=== PATIENT | male | born 1960 | race African-American/Black ===

== ENCOUNTER 2018-11-02 15:00 | Inpatient (IN) | payer OTHER ==
[~2018-11-02] VITALS: Ht 185.4 cm; Wt 104.0 kg
[2018-11-02 15:04] VITALS: Ht 185.4 cm; Wt 104.0 kg
[2018-11-02 17:18] LABS: BASOPHIL % 0.5 % (0-2); PLATELET COUNT 329 x10^3mcL (130-400)
[2018-11-02 17:19] LABS: RED CELL DISTRIBUTION WIDTH 15.9 % (11.5-14.5)
[2018-11-02 17:25] LABS: CALCIUM 8.3 mg/dL (8.5-10.1); CARBON DIOXIDE 26.8 mmol/L (21-32); CHLORIDE SERUM 103 mmol/L (98-107); CREATININE SERUM 0.6 mg/dL (0.7-1.3); GFR1 > 60 mL/min; GLUCOSE SERUM 104 mg/dL (74-106); POTASSIUM SERUM 3.7 mmol/L (3.5-5.1); SODIUM SERUM 138 mmol/L (136-145)
[2018-11-02 17:38] LABS: ALBUMIN 3.6 g/dL (3.4-5.0); ALKALINE PHOSPHATASE 56 U/L (46-116); ALT/SGPT 22 U/L (16-63); AST/SGOT 17 U/L (15-37); BILIRUBIN TOTAL 0.4 mg/dL (0.20-1.00); TOTAL PROTEIN, SERUM 7.4 g/dL (6.4-8.2)
[2018-11-02] MEDS ORDERED: INVEGA SUSTENN117 MG (19:34)
[2018-11-02 20:21] LABS: microscopic required? YES; urine erythrocyte TRACE (NEGATIVE)
[2018-11-02 20:38] VITALS: BP 128/74
[2018-11-02 21:04] LABS: AMPHETAMINE QUAL UR POSITIVE (See below)
[2018-11-03 04:46] VITALS: BP 99/61
[2018-11-03 09:04] VITALS: BP 99/63
[2018-11-03 12:07] VITALS: BP 101/60
[2018-11-03 17:48] VITALS: BP 107/61
[2018-11-03 20:26] VITALS: BP 98/52
[2018-11-04 05:50] VITALS: BP 108/50
[2018-11-04 06:51] LABS: CALCIUM 8.2 mg/dL (8.5-10.1); CARBON DIOXIDE 24.9 mmol/L (21-32); CHLORIDE SERUM 104 mmol/L (98-107); CREATININE SERUM 0.6 mg/dL (0.7-1.3); GFR1 > 60 mL/min; GLUCOSE SERUM 85 mg/dL (74-106); PHOSPHOROUS 4.1 mg/dL (2.5-4.9); POTASSIUM SERUM 3.8 mmol/L (3.5-5.1); SODIUM SERUM 139 mmol/L (136-145)
[2018-11-04 08:08] LABS: BASOPHIL % 0.8 % (0-2); PLATELET COUNT 285 x10^3mcL (130-400)
[2018-11-04 08:11] LABS: RED CELL DISTRIBUTION WIDTH 16.6 % (11.5-14.5)
[2018-11-04 09:23] VITALS: BP 93/54
[2018-11-04 11:30] VITALS: BP 130/83
[2018-11-04 16:13] VITALS: BP 143/90
[2018-11-04 21:12] VITALS: BP 131/83
[2018-11-05 04:46] VITALS: BP 111/66
[2018-11-05 07:20] LABS: BASOPHIL % 0.6 % (0-2); PLATELET COUNT 332 x10^3mcL (130-400)
[2018-11-05 07:35] LABS: CALCIUM 8.8 mg/dL (8.5-10.1); CARBON DIOXIDE 24.4 mmol/L (21-32); CHLORIDE SERUM 104 mmol/L (98-107); CREATININE SERUM 0.6 mg/dL (0.7-1.3); GFR1 > 60 mL/min; GLUCOSE SERUM 92 mg/dL (74-106); POTASSIUM SERUM 4.1 mmol/L (3.5-5.1); SODIUM SERUM 138 mmol/L (136-145)
[2018-11-05 07:47] LABS: RED CELL DISTRIBUTION WIDTH 16.3 % (11.5-14.5)
[2018-11-05 08:48] VITALS: BP 96/72
[2018-11-05 12:32] VITALS: BP 112/90
[2018-11-05 21:11] VITALS: BP 106/67
[2018-11-06 05:47] VITALS: BP 98/59
[2018-11-06 08:33] VITALS: BP 140/75
[2018-11-06 17:05] VITALS: BP 103/66
[2018-11-06 19:49] VITALS: BP 119/74
[2018-11-07 05:16] VITALS: BP 107/71
[2018-11-07 06:56] LABS: BASOPHIL % 0.7 % (0-2); PLATELET COUNT 320 x10^3mcL (130-400)
[2018-11-07 07:17] LABS: CALCIUM 8.8 mg/dL (8.5-10.1); CARBON DIOXIDE 23.1 mmol/L (21-32); CHLORIDE SERUM 104 mmol/L (98-107); CREATININE SERUM 0.7 mg/dL (0.7-1.3); GFR1 > 60 mL/min; GLUCOSE SERUM 90 mg/dL (74-106); POTASSIUM SERUM 3.7 mmol/L (3.5-5.1); SODIUM SERUM 140 mmol/L (136-145)
[2018-11-07 07:29] LABS: RED CELL DISTRIBUTION WIDTH 16.7 % (11.5-14.5)
[2018-11-07 07:30] VITALS: BP 109/59
[2018-11-07 16:21] VITALS: BP 82/57
[2018-11-07 19:20] VITALS: BP 113/62
[2018-11-08 04:32] VITALS: BP 129/78
[2018-11-08 06:53] LABS: BASOPHIL % 0.8 % (0-2); PLATELET COUNT 329 x10^3mcL (130-400)
[2018-11-08 07:01] LABS: RED CELL DISTRIBUTION WIDTH 16.3 % (11.5-14.5)
[2018-11-08 07:15] LABS: CALCIUM 8.5 mg/dL (8.5-10.1); CARBON DIOXIDE 24.5 mmol/L (21-32); CHLORIDE SERUM 103 mmol/L (98-107); CREATININE SERUM 0.6 mg/dL (0.7-1.3); GFR1 > 60 mL/min; GLUCOSE SERUM 96 mg/dL (74-106); POTASSIUM SERUM 3.5 mmol/L (3.5-5.1); SODIUM SERUM 138 mmol/L (136-145)
[2018-11-08 09:02] VITALS: BP 107/74
[2018-11-08 16:31] VITALS: BP 117/77
[2018-11-08 21:11] VITALS: BP 98/54
[2018-11-09 04:46] VITALS: BP 115/63
[2018-11-09 06:04] LABS: BASOPHIL % 0.4 % (0-2); PLATELET COUNT 328 x10^3mcL (130-400)
[2018-11-09 07:54] LABS: CARBON DIOXIDE 24.2 mmol/L (21-32); CHLORIDE SERUM 103 mmol/L (98-107); GLUCOSE SERUM 94 mg/dL (74-106); POTASSIUM SERUM 3.6 mmol/L (3.5-5.1); SODIUM SERUM 137 mmol/L (136-145)
[2018-11-09 07:55] LABS: CALCIUM 8.5 mg/dL (8.5-10.1); CREATININE SERUM 0.6 mg/dL (0.7-1.3); GFR1 > 60 mL/min
[2018-11-09 09:18] VITALS: BP 125/62
[2018-11-09 16:47] VITALS: BP 106/56
[2018-11-09 20:10] VITALS: BP 124/55
[2018-11-10 05:12] VITALS: BP 120/60
[2018-11-10 08:32] VITALS: BP 104/50
[2018-11-10 16:57] VITALS: BP 127/80
[2018-11-10 20:41] VITALS: BP 112/55
[2018-11-11 04:40] VITALS: BP 118/71
[2018-11-11 08:46] VITALS: BP 100/62
[2018-11-11 16:14] VITALS: BP 139/76
[2018-11-11 20:12] VITALS: BP 103/62
[2018-11-12 05:01] VITALS: BP 111/65
[2018-11-12 09:15] VITALS: BP 101/54
[2018-11-12 18:01] VITALS: BP 101/68
[2018-11-12 21:15] VITALS: BP 98/61
[2018-11-13 05:43] VITALS: BP 95/50
[2018-11-13 09:29] VITALS: BP 113/83
[2018-11-13 17:15] VITALS: BP 120/60
[2018-11-13 21:09] VITALS: BP 108/69
[2018-11-14 05:36] VITALS: BP 112/64
[2018-11-14 08:54] VITALS: BP 134/84
[2018-11-14 16:41] VITALS: BP 108/70
[2018-11-14 21:13] VITALS: BP 121/61
[2018-11-15 05:23] VITALS: BP 109/64
[2018-11-15 08:29] VITALS: BP 118/66
[2018-11-15 16:45] VITALS: BP 99/53
[2018-11-15 20:18] VITALS: BP 115/67
[2018-11-16 05:09] VITALS: BP 118/67
[2018-11-16 08:40] VITALS: BP 108/60
[2018-11-16 16:10] VITALS: BP 123/80
[2018-11-16 19:27] VITALS: BP 125/63
[2018-11-17 04:42] VITALS: BP 107/61
[2018-11-17 07:35] VITALS: BP 122/84
[2018-11-17 11:47] VITALS: BP 115/62
[2018-11-17 20:15] VITALS: BP 92/58
[2018-11-18 05:27] VITALS: BP 109/53
[2018-11-18 08:36] VITALS: BP 98/50
[2018-11-18 16:38] VITALS: BP 122/70
[2018-11-18 20:59] VITALS: BP 113/59
[2018-11-19 05:29] VITALS: BP 107/64
[2018-11-19 08:24] VITALS: BP 128/81
[2018-11-19 17:12] VITALS: BP 114/55
[2018-11-19 21:39] VITALS: BP 150/69
[2018-11-20 05:25] VITALS: BP 114/64
[2018-11-20 08:26] VITALS: BP 130/70
[2018-11-20 17:08] VITALS: BP 129/62
[2018-11-20 19:49] VITALS: BP 125/74
[2018-11-21 04:46] VITALS: BP 97/59
[2018-11-21 07:49] VITALS: BP 107/64
[2018-11-21 16:50] VITALS: BP 125/82
[2018-11-21 19:45] VITALS: BP 101/56
[2018-11-22 04:50] VITALS: BP 115/71
[2018-11-22 08:37] VITALS: BP 100/66
[2018-11-22 17:25] VITALS: BP 119/81
[2018-11-22 21:16] VITALS: BP 128/74
[2018-11-23 04:44] VITALS: BP 104/47
[2018-11-23 08:17] VITALS: BP 103/60
[2018-11-23 16:32] VITALS: BP 99/57
[2018-11-23 20:24] VITALS: BP 96/57
[2018-11-24 05:41] VITALS: BP 109/64
[2018-11-24 08:09] VITALS: BP 95/42
[2018-11-24 16:18] VITALS: BP 109/57
[2018-11-24 20:44] VITALS: BP 124/61
[2018-11-25 04:40] VITALS: BP 102/62
[2018-11-25 07:32] VITALS: BP 122/70
[2018-11-25 15:56] VITALS: BP 121/70
[2018-11-25 19:51] VITALS: BP 101/58
[2018-11-26 05:17] VITALS: BP 135/76
[2018-11-26 07:53] VITALS: BP 110/68
[2018-11-26 11:45] VITALS: BP 113/67
[2018-11-26 16:33] VITALS: BP 115/60
[2018-11-26 19:31] VITALS: BP 97/58
[2018-11-27 04:54] VITALS: BP 99/57
[2018-11-27 09:02] VITALS: BP 115/70
[2018-11-27 16:37] VITALS: BP 110/64
[2018-11-27 21:40] VITALS: BP 119/50
[2018-11-28 05:07] VITALS: BP 129/78
[2018-11-28 08:46] VITALS: BP 110/83
[2018-11-28 16:34] VITALS: BP 98/53
[2018-11-28 20:42] VITALS: BP 128/63
[2018-11-29 04:40] VITALS: BP 112/71
[2018-11-29 08:10] VITALS: BP 117/57
[2018-11-29 16:05] VITALS: BP 112/58
[2018-11-29 19:32] VITALS: BP 110/62
[2018-11-29 19:38] VITALS: BP 110/61
[2018-11-30 04:20] VITALS: BP 130/87
[2018-11-30 08:04] VITALS: BP 143/86
[2018-11-30 12:00] VITALS: BP 140/78
[2018-11-30 16:03] VITALS: BP 119/72
[2018-11-30 19:58] VITALS: BP 99/76
[2018-12-01 04:54] VITALS: BP 108/56
[2018-12-01 07:53] VITALS: BP 128/63
[2018-12-01 11:53] VITALS: BP 123/80
[2018-12-01 16:12] VITALS: BP 129/78
[2018-12-01 19:33] VITALS: BP 129/80
[2018-12-02 04:16] VITALS: BP 103/52
[2018-12-02 08:43] VITALS: BP 113/75
[2018-12-02 17:12] VITALS: BP 124/65
[2018-12-02 21:26] VITALS: BP 130/79
[2018-12-03 04:59] VITALS: BP 94/55
[2018-12-03 08:38] VITALS: BP 107/63
[2018-12-03 16:30] VITALS: BP 119/75
[2018-12-03 20:53] VITALS: BP 131/76
[2018-12-04 05:28] VITALS: BP 115/70
[2018-12-04 07:49] VITALS: BP 122/52
[2018-12-04 15:49] VITALS: BP 114/60
[2018-12-04 20:57] VITALS: BP 123/73
== END 2018-12-05 00:20 | DRG 52 ==
LOC: ED 15:00 → MU 19:40 → DU 19:40 → MU 11-05 13:35
PROVIDERS: Emergency Medicine; General Practice; ADMIT Internal Medicine
DX: G93.40 Encephalopathy, unspecified (principal); F20.9 Schizophrenia, unspecified; M24.562 Contracture, left knee; M24.561 Contracture, right knee; F15.10 Other stimulant abuse, uncomplicated; F17.210 Nicotine dependence, cigarettes, uncomplicated; Z59.0 Homelessness; Z99.3 Dependence on wheelchair; Z68.31 Body mass index [BMI] 31.0-31.9, adult; Z91.19 Patient's noncompliance with other medical treatment and regimen; Z71.6 Tobacco abuse counseling; Z23 Encounter for immunization
CPT/HCPCS: 90658; 99406; G0378; G0480; J7030; Q0092